=== PATIENT | female | born 1950 | race Caucasian/White ===

== ENCOUNTER 2021-01-09 16:24 | Emergency (ER) | payer MEDICARE ==
[2021-01-09] MEDS ORDERED: Boostrix 0.5 ML (Tdap) VIAL ONE (17:19)
[2021-01-09] MEDS ORDERED: Ibuprofen 800 MG TAB ONE (17:19)
== END 2021-01-09 17:40 | disposition home or self-care (01) ==
LOC: MADERS 16:24
DX: S61.451A Open bite of right hand, initial encounter (principal); L03.114 Cellulitis of left upper limb; I10 Essential (primary) hypertension; W55.01XA Bitten by cat, initial encounter
CPT/HCPCS: 90471; 90715

== ENCOUNTER 2021-08-01 18:26 | Emergency (ER) | payer MEDICARE ==
[2021-08-01] MEDS ORDERED: Albuterol Sulfate 2.5 mg/3 ml Neb ONE (18:40)
[2021-08-01] MEDS ORDERED: Ipratropium Bromide 2.5 ml Neb ONE ×3 (18:40→21:11)
[2021-08-01 19:14] LABS: #Basophils 0.1 thou/uL (0.0-0.2); #Lymphocytes 0.9 thou/uL (1.20-3.40); #Monocytes 0.3 thou/uL (0.11-0.59); #Neutrophils 6.7 thou/uL (1.40-6.50); %Basophils 0.7 % (0.0-1.0); %Eosinophils 0.6 % (0.0-10.0); %Lymphocytes 10.8 % (21.0-51.0); %Monocytes 3.5 % (0.0-10.0); %Neutrophils 84.4 % (42.0-75.0); Hemoglobin 15.1 g/dL (12.0-16.0); Mean Corpuscular Hemoglobin 30.1 pg (27.0-31.0); Mean Corpuscular Volume 97.1 fL (78.0-98.0); Mean Platelet Volume 7.4 fL (7.4-10.4); Platelet Count 308 thou/uL (130-400); RBC Distribution Width 13.3 % (11.5-14.5); Red Blood Cell (RBC) Count 5.03 mill/uL (4.20-5.40); White Blood Cell (WBC) Count 7.9 thou/uL (4.8-10.8)
[2021-08-01] MEDS ORDERED: Sodium Chloride 0.9% 100 ML ONE (19:27)
[2021-08-01] MEDS ORDERED: cefTRIAXone\\ROCEPHIN 2 GM VIAL ONE (19:27)
[2021-08-01] MEDS ORDERED: Sodium Chloride 0.9% 250 ML 250 ML ONE (19:27)
[2021-08-01] MEDS ORDERED: Azithromycin 500 MG VIAL ONE (19:27)
[2021-08-01] MEDS ORDERED: Albuterol Sulfate 2.5 mg/0.5 ml Neb ONE ×2 (19:28→21:11)
[2021-08-01 19:30] LABS: Base Excess-Venous -1.1 mmol/L (-2.0 to 3.0); Bicarbonate (HCO3v) 26.4 mmol/L (22.0-28.0); CO2 Tension (PvCO2) 52.4 mmHg (42.0-51.0); Calcium, Ionized 1.14 mmol/L (1.15-1.33); Chloride 109 mmol/L (98-107); Hemoglobin - Calc 18.2 g/dL (12.0-16.0); Potassium 3.8 mmol/L (3.5-5.1); Sodium 144 mmol/L (138-145); vO2 Saturation-calc 99.7 % (60.0-85.0)
[2021-08-01 19:31] LABS: ALT (SGPT) 10 U/L (8-55); AST (SGOT) 20 U/L (5-34); Albumin 4.5 g/dL (3.4-4.8); Alkaline Phosphatase 89 U/L (40-110); Anion Gap 17 mmol/L (10-20); BUN (Urea Nitrogen) 16 mg/dL (9.8-20.1); Bilirubin, Total 0.2 mg/dL (0.2-1.2); Calc. Creatinine Clearance 0 mL/min (70-130); Calcium 9.9 mg/dL (7.8-10.44); Carbon Dioxide 23 mmol/L (23-31); Chloride 105 mmol/L (98-107); Glucose 133 mg/dL (83-110); Potassium 3.8 mmol/L (3.5-5.1); Protein, Total 7.5 g/dL (5.8-8.1); Sodium 141 mmol/L (136-145)
[2021-08-01 20:03] LABS: SARS-CoV-2 NAA Rapid Test Not Detected (NotDetected)
[2021-08-01] MEDS ORDERED: ALPRAZolam 0.5 MG TAB ONE (21:11)
== END 2021-08-01 22:49 | disposition short-term general hospital (02) ==
LOC: MADERS 18:26
DX: J44.1 Chronic obstructive pulmonary disease with (acute) exacerbation (principal); R00.0 Tachycardia, unspecified; I11.0 Hypertensive heart disease with heart failure; I50.9 Heart failure, unspecified; E03.9 Hypothyroidism, unspecified; E78.5 Hyperlipidemia, unspecified; I25.2 Old myocardial infarction; Z20.822 Contact with and (suspected) exposure to COVID-19; Z87.891 Personal history of nicotine dependence; Z79.899 Other long term (current) drug therapy
CPT/HCPCS: 0240U; 71045; 82330; 82435; 82803; 83605; 83880; 84132; 84295; 84484; 85014; 85379; 87040; 87149 ×2; 93005; 94760; 36415; 80053; 84443; 85025; 96365; 96367; J0456; J0696; J7050; J7611

== ENCOUNTER 2024-03-03 10:39 | Emergency (ER) | payer OTHER ==
[2024-03-03 11:27] LABS: Anion Gap 16 mmol/L (10-20); BUN (Urea Nitrogen) 16 mg/dL (9.8-20.1); Calc. Creatinine Clearance 0 mL/min (70-130); Calcium 9.7 mg/dL (7.8-10.44); Carbon Dioxide 21 mmol/L (23-31); Chloride 110 mmol/L (98-107); Estimated GFR 47; Glucose 118 mg/dL (83-110); Magnesium 2.1 mg/dL (1.6-2.6); Sodium 145 mmol/L (136-145)
[2024-03-03 11:34] LABS: Band 2 % (5-11); Eosinophils 2 % (0-10); Hematocrit 41.3 % (36.0-47.0); Hemoglobin 12.8 g/dL (12.0-16.0); Lymphocytes 6 % (21-51); MDiff Complete? YES; Manual Diff?? YES; Mean Corpuscular Hemoglobin 31.1 pg (27.0-31.0); Mean Corpuscular Volume 100.5 fl (78.0-98.0); Mean Platelet Volume 9.5 fL (7.4-10.4); Monocytes 5 % (0-10); Neutrophil 68 % (42-75); Platelet Count 208 10x3/uL (130-400); RBC Distribution Width 13.3 % (11.5-14.5); Red Blood Cell (RBC) Count 4.11 mill/uL (4.20-5.40)
[2024-03-03 11:35] LABS: Macrocytosis SLIGHT = 6-15 cells (100X) (0-5/hpf); Platelet Adequacy Comment Appears Adequate; Reactive Lymphocytes 16 % (0-10)
[2024-03-03 11:38] LABS: Critical Call Chemistry NUR.MB22@1137; Potassium 2.1 mmol/L (3.5-5.1)
[2024-03-03] MEDS ORDERED: Potassium Chloride 20 MEQ TAB ONE (11:46)
[2024-03-03] MEDS ORDERED: Potassium Chloride 20 MEQ (100 mL) BAG ONE (11:46)
== END 2024-03-03 14:20 | disposition home or self-care (01) ==
LOC: MADERS 10:39
DX: E87.6 Hypokalemia (principal); I11.0 Hypertensive heart disease with heart failure; I50.9 Heart failure, unspecified; J44.9 Chronic obstructive pulmonary disease, unspecified; Z87.891 Personal history of nicotine dependence
CPT/HCPCS: 80048; 83735; 85025; 93005; J3480; 96365; 96366